=== PATIENT | male | born 1995 | race African-American/Black ===

== ENCOUNTER 2017-05-16 03:15 | Emergency (ER) | payer MEDICAID ==
[~2017-05-16] VITALS: Ht 182.9 cm; Wt 85.0 kg
[~2017-05-16 03:15] MED LIST: POLY10O RIGHT EYE; Z.0.NO CURRENT MEDS
[2017-05-16 03:19] VITALS: BP 127/62; PULSE 54; RESP 16; TEMP 98.9; O2SAT 98
--- NOTE | 2017-05-16 03:47 | PD ---
HPI Chief Complaint: Abdominal Pain Time Seen by Provider: 03:46 Travel History International Travel<30 days: No Contact w/Intl Traveler<30days: No Traveled to known affect area: No History of Present Illness HPI Patient is a 23-year-old male for 2 days he's been having abdominal pain which was right lower quadrant and also epigastric with episodes of diarrhea and vomiting. Denies sick contacts in the ER he has no abdominal pain on my initial exam there is no right lower quadrant tenderness no vomiting actively in the ER he has no significant past medical history PFSH Past Medical History Medical History: Denies Significant Hx Past Surgical History Surgical History: No Previous Surgery Social History Alcohol Use: Yes ([facility]) Tobacco Use: Yes Substance Use: No Allergies-Medications (Allergen,Severity, Reaction): Coded Allergies: No Known Allergies (Unverified Adverse Reaction, Unknown, 05/16/17) Reported Meds & Prescriptions Reported Meds & Active Scripts Active No Active Prescriptions or Reported Medications Review of Systems Except as stated in HPI: all other systems reviewed are Neg Gastrointestinal: Positive: Nausea, Vomiting, Abdominal Pain Physical Exam Narrative GENERAL: Nontoxic-appearing awake alert SKIN: Warm and dry. HEAD: Atraumatic. Normocephalic. EYES: Pupils equal and round. No scleral icterus. No injection or drainage. ENT: No nasal bleeding or discharge. Mucous membranes pink and moist. NECK: Trachea midline. No JVD. CARDIOVASCULAR: Regular rate and rhythm. RESPIRATORY: No accessory muscle use. Clear to auscultation. Breath sounds equal bilaterally. GASTROINTESTINAL: Abdomen percussion and palpation of all quadrants there is no tenderness nondistended. Hepatic and splenic margins not palpable. MUSCULOSKELETAL: Extremities without clubbing, cyanosis, or edema. No obvious deformities. NEUROLOGICAL: Awake and alert. No obvious cranial nerve deficits. Motor grossly within normal limits. Five out of 5 muscle strength in the arms and legs. Normal speech. PSYCHIATRIC: Appropriate mood and affect; insight and judgment normal. REPEAT ABDO EXAM THERE is vague dull ache to percussion RLQ ( will need to rule out appendicitis ) Data Data Last Documented VS Vital Signs Date Time Temp Pulse Resp B/P (MAP) Pulse Ox O2 Delivery O2 Flow Rate FiO2 05/16/17 09:55 05/16/17 08:58 76 14 100 Room Air Orders Orders Famotidine Inj (Pepcid Inj) (05/16/17 04:00) Ondansetron Inj (Zofran Inj) (05/16/17 04:00) Sodium Chlor 0.9% 1000 Ml Inj (Ns 1000 M (05/16/17 04:00) Complete Blood Count With Diff (05/16/17 03:53) Comprehensive Metabolic Panel (05/16/17 03:53) Lipase (05/16/17 03:53) Ketorolac Inj (Toradol Inj) (05/16/17 05:15) Ct Abd/Pel W Iv Contrast(Rout) (05/16/17 ) Oral Contrast - Adult (05/16/17 05:58) Diatrizoate Liq ( Gastroelis Liq) (05/16/17 06:02) Iohexol 350 Inj (Omnipaque 350 Inj) (05/16/17 08:12) Ed Discharge Order (05/16/17 09:45) Labs Laboratory Tests Test 05/16/17 04:00 White Blood Count 9.1 TH/MM3 Red Blood Count 5.31 MIL/MM3 Hemoglobin 13.5 GM/DL Hematocrit 40.3 % Mean Corpuscular Volume 75.9 FL Mean Corpuscular Hemoglobin 25.5 PG Mean Corpuscular Hemoglobin Concent 33.6 % Red Cell Distribution Width 14.2 % Platelet Count 140 TH/MM3 Mean Platelet Volume 9.3 FL CBC Comment AUTO DIFF Differential Total Cells Counted 100 Neutrophils % (Manual) 37 % Band Neutrophils % 1 % Lymphocytes % 31 % Monocytes % 10 % Basophils % 1 % Neutrophils # (Manual) 3.5 TH/MM3 Differential Comment FINAL DIFF MANUAL Atypical Lymphocytes 20 % Platelet Estimate LOW Platelet Morphology Comment NORMAL Tear Drop Cells 1+ Ovalocytes 1+ Blood Urea Nitrogen 10 MG/DL Creatinine 0.95 MG/DL Random Glucose 109 MG/DL Total Protein 7.6 GM/DL Albumin 3.5 GM/DL Calcium Level 8.5 MG/DL Alkaline Phosphatase 105 U/L Aspartate Amino Transf (AST/SGOT) 115 U/L Alanine Aminotransferase (ALT/SGPT) 133 U/L Total Bilirubin 0.3 MG/DL Sodium Level 139 MEQ/L Potassium Level 3.9 MEQ/L Chloride Level 104 MEQ/L Carbon Dioxide Level 28.5 MEQ/L Anion Gap 7 MEQ/L Estimat Glomerular Filtration Rate 123 ML/MIN Lipase 101 U/L [facility] Medical Decision Making Medical Screen Exam Complete: Yes Emergency Medical Condition: Yes Differential Diagnosis Differential diagnosis includes appendicitis versus gastroenteritis versus mesenteric adenitis pancreatitis gallbladder disease or abdomen pain NOS Narrative Course Patient's initial exam he was complaining of right lower quadrant pain but when I examined him ,percussed him , he did not have any pain... I gave him Pepcid and Zofran with no relief , then I gave him Toradol re-exam--> he now had more of a focal pain in the right lower quadrant -- I feel obligated to do a CAT scan to rule out appendicitis Diagnosis Primary Impression: Abdominal pain Qualified Codes: R10.9 - Unspecified abdominal pain Scripts No Active Prescriptions or Reported Meds Kurt Moran MD May 16, 2017 03:47
[2017-05-16] MEDS ORDERED: ONDANSETRON HCL 4 MG/2 ML VIAL IV PUSH ONE (04:00)
[2017-05-16] MEDS ORDERED: FAMOTIDINE 20 MG/2 ML VIAL IV PUSH SCH (04:00)
[2017-05-16] MEDS ORDERED: SODIUM CHLOR 0.9% 1000 ML INJ 1,000 ML IV ONE (04:00)
[2017-05-16 04:22] LABS: HEMATOCRIT 40.3 % (39.0-51.0); HEMOGLOBIN 13.5 GM/DL (13.0-17.0); MEAN CELL VOLUME 75.9 FL (80.0-100.0); MEAN CORPUSCULAR HEMOGLOBIN 25.5 PG (27.0-34.0); MEAN CORPUSCULAR HGB CONC 33.6 % (32.0-36.0); MEAN PLATELET VOLUME 9.3 FL (7.0-11.0); PLATELET COUNT 140 TH/MM3 (150-450); RED BLOOD COUNT 5.31 MIL/MM3 (4.50-5.90); RED CELL DISTRIBUTION WIDTH 14.2 % (11.6-17.2); WHITE BLOOD COUNT 9.1 TH/MM3 (4.0-11.0)
[2017-05-16 04:37] LABS: ALBUMIN 3.5 GM/DL (3.4-5.0); ALT (GPT) 133 U/L (9-52); AST (GOT) 115 U/L (15-39); BICARBONATE 28.5 MEQ/L (21.0-32.0); BLOOD UREA NITROGEN 10 MG/DL (7-18); CALCIUM 8.5 MG/DL (8.5-10.1); CHLORIDE 104 MEQ/L (98-107); CREATININE 0.95 MG/DL (0.60-1.30); GLOMERULAR FILTRATION RATE 123 ML/MIN (>89); GLUCOSE,RANDOM 109 MG/DL (74-106); SODIUM (NA) 139 MEQ/L (136-145)
[2017-05-16 04:40] LABS: ALKALINE PHOSPHATASE 105 U/L (45-117); TOTAL BILIRUBIN ADULT 0.3 MG/DL (0.2-1.0); TOTAL PROTEIN 7.6 GM/DL (6.4-8.2)
[2017-05-16] MEDS ORDERED: KETOROLAC TROMETHAMINE 30 MG/ML (IVP) VIAL IV PUSH ONE (05:15)
[2017-05-16 05:41] LABS: ATYPICAL LYMPHOCYTES 20 % (0-0); BANDS 1 % (0-6); BASOPHILS 1 % (0-2); LYMPHOCYTES 31 % (9-44); MONOCYTES 10 % (0-8); NEUTROPHIL # MANUAL DIFF 3.5 TH/MM3 (1.8-7.7); POLYS (SEG NEUTROPHILS) 37 % (16-70); TEARDROP RBCS 1+ (NORMAL)
[2017-05-16 05:42] LABS: OVALOCYTES 1+ (NORMAL)
[2017-05-16] MEDS ORDERED: DIATRIZOATE MEGLUM/DIATRIZOATE SOD 9 ML CUP ONE (06:02)
--- NOTE | 2017-05-16 07:42 | PD ---
Data Data Last Documented VS Vital Signs Date Time Temp Pulse Resp B/P (MAP) Pulse Ox O2 Delivery O2 Flow Rate FiO2 05/16/17 09:55 05/16/17 08:58 76 14 100 Room Air 05/16/17 03:19 98.9 Orders Orders Famotidine Inj (Pepcid Inj) (05/16/17 04:00) Ondansetron Inj (Zofran Inj) (05/16/17 04:00) Sodium Chlor 0.9% 1000 Ml Inj (Ns 1000 M (05/16/17 04:00) Complete Blood Count With Diff (05/16/17 03:53) Comprehensive Metabolic Panel (05/16/17 03:53) Lipase (05/16/17 03:53) Ketorolac Inj (Toradol Inj) (05/16/17 05:15) Ct Abd/Pel W Iv Contrast(Rout) (05/16/17 ) Oral Contrast - Adult (05/16/17 05:58) Diatrizoate Liq ( Gastroview Liq) (05/16/17 06:02) Iohexol 350 Inj (Omnipaque 350 Inj) (05/16/17 08:12) Ed Discharge Order (05/16/17 09:45) Labs Laboratory Tests Test 05/16/17 04:00 White Blood Count 9.1 TH/MM3 Red Blood Count 5.31 MIL/MM3 Hemoglobin 13.5 GM/DL Hematocrit 40.3 % Mean Corpuscular Volume 75.9 FL Mean Corpuscular Hemoglobin 25.5 PG Mean Corpuscular Hemoglobin Concent 33.6 % Red Cell Distribution Width 14.2 % Platelet Count 140 TH/MM3 Mean Platelet Volume 9.3 FL CBC Comment AUTO DIFF Differential Total Cells Counted 100 Neutrophils % (Manual) 37 % Band Neutrophils % 1 % Lymphocytes % 31 % Monocytes % 10 % Basophils % 1 % Neutrophils # (Manual) 3.5 TH/MM3 Differential Comment FINAL DIFF MANUAL Atypical Lymphocytes 20 % Platelet Estimate LOW Platelet Morphology Comment NORMAL Tear Drop Cells 1+ Ovalocytes 1+ Blood Urea Nitrogen 10 MG/DL Creatinine 0.95 MG/DL Random Glucose 109 MG/DL Total Protein 7.6 GM/DL Albumin 3.5 GM/DL Calcium Level 8.5 MG/DL Alkaline Phosphatase 105 U/L Aspartate Amino Transf (AST/SGOT) 115 U/L Alanine Aminotransferase (ALT/SGPT) 133 U/L Total Bilirubin 0.3 MG/DL Sodium Level 139 MEQ/L Potassium Level 3.9 MEQ/L Chloride Level 104 MEQ/L Carbon Dioxide Level 28.5 MEQ/L Anion Gap 7 MEQ/L Estimat Glomerular Filtration Rate 123 ML/MIN Lipase 101 U/L [facility] Supervised Visit with JONES: Yes Narrative Course Patient CARE assumed from Dr. Moran at 0700, this is a 22-year-old male presents emergency department with right lower quadrant abdominal pain. A my initial examination patient sleeping soundly, he had to be awoken by nursing to finish drinking his contrast for a CT scan. Reviewed his labs and does show transaminitis but no evidence of acute liver failure bilirubin normal. Waiting results of the CAT scan, patient's pain appears to be relatively well controlled with Toradol. Patient CAT scan results were reviewed: Last 24 hours Impressions Abdomen/Pelvis CT 05/16/17 0000 Signed Impressions: Service Date/Time: Thursday, May 16, 2017 08:05 - CONCLUSION: 1. Minimal induration of the fat at the base of the appendix best seen on the coronal images. The appendix itself is upper limits of normal for thickness. The remaining aspect of the appendix does not have any inflammatory change surrounding it. There is scattered air within the appendix. 2. Mild free fluid in the lower pelvis. Og Navarro MD Discussed results with the patient and he is feeling much better, his abdomen is benign currently has no tenderness over the appendix at all, and the psoas and obturator signs are negative. At this time I discussed with him possibility of appendicitis but it looks like the inflammation is around the appendix and not itself inflamed. I discussed with him that he could consider a surgical option at this point but he would like to go home and have some time to try and heal on his own, given the findings are not absolute for appendicitis , his white blood cell count is normal and his abdomen is benign I think this is reasonable for him to pursue at this time. I discussed with him at length that any nausea vomiting any worsening abdominal pain should be cause for immediate return to the emergency department for repeat evaluation he verbalized understanding and agreement. Diagnosis Primary Impression: Abdominal pain Qualified Codes: R10.9 - Unspecified abdominal pain Scripts No Active Prescriptions or Reported Meds Disposition: DISCHARGE HOME Condition: Stable Carlton Danielle MD May 16, 2017 07:42
[2017-05-16] MEDS ORDERED: IOHEXOL 350 MG/ML 10 ML VIAL (for RAD DIAG) IVCONTRAST ONE (08:12)
--- NOTE | 2017-05-16 08:25 | RADRPT ---
EXAM DATE/TIME: 05/16/2017 08:05 [place] COMPARISON: No previous studies available for comparison. INDICATIONS : Right lower abdomen pain for two days. IV CONTRAST: 95 cc Omnipaque 350 (iohexol) IV ORAL CONTRAST: Prescribed oral contrast ingested. RADIATION DOSE: 6.34 CTDIvol (mGy) MEDICAL HISTORY : None SURGICAL HISTORY : None. ENCOUNTER: Initial ACUITY: 2 days PAIN SCALE: 7/10 LOCATION: Right lower quadrant TECHNIQUE: Volumetric scanning of the abdomen and pelvis was performed. Using automated exposure control and ad justment of the mA and/or kV according to patient size, radiation dose was kept as low as reasonably achievable to obtain optimal diagnostic quality images. DICOM format image data is available electro nically for review and comparison. FINDINGS: LOWER LUNGS: The visualized lower lungs are clear. LIVER: Homogeneous density without lesion. There is no dilation of the biliary tree. No calcified gallston es. SPLEEN: Normal size without lesion. PANCREAS: Within normal limits. KIDNEYS: Normal in size and shape. There is no mass, stone or hydronephrosis. ADRENAL GLANDS: Within normal limits. VASCULAR: There is no aortic aneurysm. BOWEL/MESENTERY: The stomach, small bowel, and colon demonstrate no acute abnormality. There is no free intraperitone al air or fluid. The appendix is identified. It measures up to 8 mm in diameter. There is scattered a ir within the appendix. There is very minimal induration of the fat at the base of the appendix. This is best seen on the coronal images. Significant induration of fat around the remaining aspect of the appendix is not seen. The tip of the appendix is directed superiorly posterior to the ascending colo n. ABDOMINAL WALL: Within normal limits. RETROPERITONEUM: There is no lymphadenopathy. BLADDER: No wall thickening or mass. REPRODUCTIVE: Within normal limits. There is a mild amount of free fluid seen in the lower pelvic peritoneal cavity . INGUINAL: There is no lymphadenopathy or hernia. MUSCULOSKELETAL: Within normal limits for patient age. CONCLUSION: 1. Minimal induration of the fat at the base of the appendix best seen on the coronal images. The neisha endix itself is upper limits of normal for thickness. The remaining aspect of the appendix does not h ave any inflammatory change surrounding it. There is scattered air within the appendix. 2. Mild free fluid in the lower pelvis. Og Navarro MD on May 16, 2017 at 8:18 Board Certified Radiologist. This report was verified electronically.
[2017-05-16 08:58] VITALS: BP 125/77; PULSE 76; RESP 14; O2SAT 100
== END 2017-05-16 10:17 | disposition home or self-care (01) ==
LOC: NEPE 03:15
DX: R10.31 Right lower quadrant pain (principal); Z72.0 Tobacco use
CPT/HCPCS: 74177; 80053; 83690; 85007; 85027; 96361; 96374; 96375; 99284; J1885; J2405; J7030; Q9963; Q9967